=== PATIENT | female | born 1995 | race Hispanic/Latino ===

== ENCOUNTER 2022-11-20 16:54 | Day surgery (SDC) | payer OTHER ==
[2022-11-20] MEDS ORDERED: hydrALAZINE 20 MG/ML VIAL SLOW IVP PRN (18:21)
[2022-11-20] MEDS ORDERED: Acetaminophen 325 MG TAB PO SCH (19:00)
[2022-11-20 19:19] LABS: Fetal Membranes Rupture No Membranes Rupture (No Rupture)
[2022-11-20 20:43] LABS: Bilirubin Neg (Negative); Blood, Urine Negative (Negative); CAUTI Indications for Culture Pregnancy; Clarity Clear (Clear); Glucose, Urine (Dipstick) Normal (Negative); Ketone, Urine 5 mg/dL (Negative); Leukocyte Negative (Negative); Nitrite Negative (Negative); Protein, Urine (Dipstick) Negative (Neg-Trace); Urobilinogen Normal mg/dL (Less than 2); pH, Urine 6.5 (5.0-9.0)
[2022-11-20 20:49] LABS: Urine Culture Reflex Yes Yes
[2022-11-20 21:08] LABS: RBC/HPF 0-3 HPF (0-3); Squamous Epithelial 0-3 HPF (0-3); WBC/HPF 0-3 HPF (0-3)
[2022-11-20 21:10] LABS: Bacteria/HPF Rare-Few HPF (None Seen)
== END 2022-11-20 21:29 | disposition home or self-care (01) ==
LOC: CSHLD/OP 16:54
PROVIDERS: ATTEND Student in an Organized Health Care Education/Training Program
DX: O26.893 Other specified pregnancy related conditions, third trimester (principal); R10.9 Unspecified abdominal pain; N89.8 Other specified noninflammatory disorders of vagina; Z3A.34 34 weeks gestation of pregnancy; Z87.442 Personal history of urinary calculi; Z79.899 Other long term (current) drug therapy; Z88.0 Allergy status to penicillin; Z88.1 Allergy status to other antibiotic agents
CPT/HCPCS: 81001; 84112; 87086; 87480; 87510; 87660; 99284

== ENCOUNTER 2022-12-18 05:26 | Day surgery (SDC) | payer OTHER ==
[2022-12-18 05:48] VITALS: BMI 32.9
[2022-12-18] MEDS ORDERED: Ondansetron PF 4 MG/2 ML Vial ONE (07:36)
[2022-12-18] MEDS ORDERED: hydrALAZINE 20 MG/ML VIAL SLOW IVP PRN (08:07)
[2022-12-18 08:51] LABS: SARS-CoV-2 NAA Rapid Test Not Detected (NotDetected)
== END 2022-12-18 10:50 | disposition home or self-care (01) ==
LOC: CSHLD/OP 05:26
PROVIDERS: ATTEND Obstetrics & Gynecology
DX: O47.1 False labor at or after 37 completed weeks of gestation (principal); O98.513 Other viral diseases complicating pregnancy, third trimester; B34.9 Viral infection, unspecified; Z20.822 Contact with and (suspected) exposure to COVID-19; O99.213 Obesity complicating pregnancy, third trimester; E66.9 Obesity, unspecified; Z88.0 Allergy status to penicillin; Z88.1 Allergy status to other antibiotic agents; Z3A.38 38 weeks gestation of pregnancy
CPT/HCPCS: 96360; 96375; 99283; J2405

== ENCOUNTER 2022-12-21 00:19 | Inpatient (IN) | payer MEDICAID, OTHER, SELFPAY ==
[2022-12-21] MEDS ORDERED: hydrALAZINE 20 MG/ML VIAL SLOW IVP PRN ×2 (01:18→10:25)
[2022-12-21] MEDS ORDERED: Ondansetron PF 4 MG/2 ML Vial IVP PRN ×2 (01:18→02:19)
[2022-12-21] MEDS ORDERED: Acetaminophen 500 MG TAB PO PRN (01:18)
[2022-12-21] MEDS ORDERED: Butorphanol Tartrate 1 MG/ML VIAL SLOW IVP PRN (01:18)
[2022-12-21] MEDS ORDERED: Promethazine HCl 25 MG/ML VIAL IM PRN ×2 (01:18→02:19)
[2022-12-21] MEDS ORDERED: Fentanyl 100 MCG/2 ML VIAL SLOW IVP PRN (01:18)
[2022-12-21] MEDS ORDERED: Ibuprofen 800 MG TAB PO PRN (01:23)
[2022-12-21] MEDS ORDERED: Methylergonovine 0.2 MG/ML VIAL IM PRN (01:23)
[2022-12-21] MEDS ORDERED: Misoprostol 200 MCG TAB PR PRN (01:23)
[2022-12-21] MEDS ORDERED: Lidocaine 1% (PF) 30 ML VIAL SC PRN (01:23)
[2022-12-21] MEDS ORDERED: Carboprost 250 MCG/ML AMP IM PRN (01:23)
[2022-12-21] MEDS ORDERED: Diphenoxylate HCl/Atropine Tablet PO PRN (01:23)
[2022-12-21] MEDS ORDERED: NS w/ Oxytocin 30 units 500 ML IV SCH ×2 (01:30→10:25)
[2022-12-21] MEDS ORDERED: Lactated Ringer's 1,000 ML IV SCH ×2 (01:30)
[2022-12-21 01:54] LABS: Hemoglobin 13.6 g/dL (12.0-15.5); Mean Corpuscular HGB CONC 33.2 g/dL (32.0-36.0); Mean Corpuscular Hemoglobin 26.4 pg (27.0-33.0); Mean Corpuscular Volume 79.6 fl (81.6-98.3); Mean Platelet Volume 10.3 fl (7.4-10.4); Platelet Count 340 10x3/uL (150-450); RBC Distribution Width 15.1 % (11.5-14.5); Red Blood Cell (RBC) Count 5.15 10x6/uL (3.90-5.03); White Blood Cell (WBC) Count 10.8 10x3/uL (3.5-10.5)
[2022-12-21] MEDS ORDERED: Fentanyl 2 mcg/Bup 0.1% Cadd 100 ML ONE (02:08)
[2022-12-21] MEDS ORDERED: Moisturizing Cream (Eucerin) 113 GM JAR TOP PRN (02:19)
[2022-12-21] MEDS ORDERED: diphenhydrAMINE 50 MG/ML VIAL IVP PRN (02:19)
[2022-12-21] MEDS ORDERED: Naloxone HCl 0.4 mg/ml Vial IVP PRN ×2 (02:19)
[2022-12-21] MEDS ORDERED: Lactated Ringer's 500 ML IV PRN (02:19)
[2022-12-21] MEDS ORDERED: ePHEDrine Sulfate 50 MG/10 ML VIAL SLOW IVP PRN (02:19)
[2022-12-21] MEDS ORDERED: Acetaminophen 325 MG TAB PO PRN (02:19)
[2022-12-21 02:27] VITALS: BMI 33.1
[2022-12-21 02:28] LABS: HBSAg Index 0.17 S/CO (0-0.99); Hep B Surf Ag Non-Reactive S/CO (NonReactive)
[2022-12-21 02:30] LABS: Syphilis Antibody Nonreactive (Nonreactive); Syphilis Antibody Index 0.09 S/CO (<1.00 Non-Reactive)
[2022-12-21] MEDS ORDERED: Communication Order-Pharmacy FS SCH (02:30)
[2022-12-21] MEDS ORDERED: Fentanyl 2 mcg/Bupivacaine 0.1% Cassette 100 ML EPIDURAL SCH (02:30)
[2022-12-21] MEDS: NS w/ Oxytocin 30 units 500 ML IV SCH ×2 (07:19→09:13)
[2022-12-21] MEDS ORDERED: Preparation H Ointment 28 GM TUBE PR PRN (10:25)
[2022-12-21] MEDS ORDERED: Boostrix 0.5 ML (Tdap) VIAL (>/=7 yrs of age) IM ONE (10:25)
[2022-12-21] MEDS ORDERED: diphenhydrAMINE 25 MG CAP PO PRN (10:25)
[2022-12-21] MEDS ORDERED: Milk Of Magnesia 30 ML UDCUP PO PRN (10:25)
[2022-12-21] MEDS ORDERED: Lanolin Ointment 7 GM TUBE TOP PRN (10:25)
[2022-12-21] MEDS ORDERED: Bisacodyl 10 MG SUPP PR PRN (10:25)
[2022-12-21] MEDS ORDERED: Benzocaine-Menthol 82.5 ML CAN TOP PRN (10:25)
[2022-12-21] MEDS ORDERED: Ferrous Sulfate 325 MG TAB PO SCH (10:45)
[2022-12-21] MEDS ORDERED: Prenatal Vitamin 1 TAB PO SCH (10:45)
[2022-12-21] MEDS ORDERED: Docusate 100 MG CAP PO SCH (10:45)
[2022-12-21] MEDS: Acetaminophen 500 MG TAB PO SCH ×3 (12:08→22:06)
[2022-12-21] MEDS ORDERED: Bupivacaine HCl 0.5%/Epinephrine 1:200,000/PF 30 ml Vial ONE (14:28)
[2022-12-21] MEDS ORDERED: Bupivacaine/Epinephrine 0.25% 30 ML VIAL ONE (14:28)
[2022-12-21] MEDS: Ferrous Sulfate 325 MG TAB PO SCH (17:08)
[2022-12-21] MEDS: Docusate 100 MG CAP PO SCH (21:42)
[2022-12-21] MEDS: Ibuprofen 800 MG TAB PO SCH (21:56)
[2022-12-22 04:25] LABS: Hemoglobin 11.2 g/dL (12.0-15.5); Mean Corpuscular HGB CONC 32.4 g/dL (32.0-36.0); Mean Corpuscular Hemoglobin 26.1 pg (27.0-33.0); Mean Corpuscular Volume 80.7 fl (81.6-98.3); Mean Platelet Volume 9.8 fl (7.4-10.4); Platelet Count 288 10x3/uL (150-450); RBC Distribution Width 15.2 % (11.5-14.5); Red Blood Cell (RBC) Count 4.29 10x6/uL (3.90-5.03); White Blood Cell (WBC) Count 9.9 10x3/uL (3.5-10.5)
[2022-12-22] MEDS: Acetaminophen 500 MG TAB PO SCH ×2 (05:24→10:45)
[2022-12-22] MEDS: Ibuprofen 800 MG TAB PO SCH ×2 (05:24→14:15)
[2022-12-22 05:28] VITALS: BP 103/54; TEMP 98
[2022-12-22] MEDS ORDERED: Prenatal Vitamin 1 TAB PO SCH (09:00)
[2022-12-22] MEDS: Ferrous Sulfate 325 MG TAB PO SCH (10:37)
[2022-12-22] MEDS: Docusate 100 MG CAP PO SCH (10:37)
[2022-12-22] MEDS ORDERED: Ibuprofen 800 MG TAB PO SCH (14:00)
== END 2022-12-22 18:31 | disposition home or self-care (01) | DRG 807 ==
LOC: CSHLD/OP 00:19 → CSHNSY 00:47 → CSHLD 03:27 → CSHPED 10:20
PROVIDERS: ADMIT Obstetrics & Gynecology; ATTEND Obstetrics & Gynecology
PROC: 10E0XZZ Delivery of Products of Conception, External Approach (ICD-10-PCS; principal; 2022-12-21)
DX: O42.02 Full-term premature rupture of membranes, onset of labor within 24 hours of rupture (principal); Z37.0 Single live birth; Z3A.38 38 weeks gestation of pregnancy; Z98.890 Other specified postprocedural states; Z88.0 Allergy status to penicillin; Z88.1 Allergy status to other antibiotic agents; Z87.440 Personal history of urinary (tract) infections; Z87.442 Personal history of urinary calculi
CPT/HCPCS: 36415; 51702; 85027; 86780; 86850; 86900; 86901; 87340; 99285; J2590

== ENCOUNTER 2024-04-09 00:39 | Day surgery (SDC) | payer OTHER ==
[2024-04-09 01:42] VITALS: BMI 35.9
[2024-04-09] MEDS ORDERED: hydrALAZINE 20 MG/ML VIAL SLOW IVP PRN (01:51)
== END 2024-04-09 04:45 | disposition home or self-care (01) ==
LOC: CSHLD/OP 00:39
PROVIDERS: ATTEND Family Medicine
DX: O47.1 False labor at or after 37 completed weeks of gestation (principal); Z88.0 Allergy status to penicillin; Z88.1 Allergy status to other antibiotic agents; Z79.899 Other long term (current) drug therapy
CPT/HCPCS: 99282

== ENCOUNTER 2024-04-21 04:00 | Day surgery (SDC) | payer OTHER ==
[2024-04-21 04:29] VITALS: BMI 38.3
== END 2024-04-21 07:30 | disposition home or self-care (01) ==
LOC: CSHLD/OP 04:00
PROVIDERS: ATTEND Family Medicine
DX: O47.1 False labor at or after 37 completed weeks of gestation (principal); Z3A.39 39 weeks gestation of pregnancy; Z79.899 Other long term (current) drug therapy; Z88.0 Allergy status to penicillin; Z88.1 Allergy status to other antibiotic agents
CPT/HCPCS: 99283

== ENCOUNTER 2024-04-22 10:16 | Inpatient (IN) | payer MEDICAID, OTHER, SELFPAY ==
[2024-04-22 10:56] VITALS: BMI 36.3
[2024-04-22] MEDS ORDERED: HYDROcodone/Acetaminophen 5/325 mg Tablet PO PRN (10:56)
[2024-04-22] MEDS ORDERED: Promethazine HCl 25 MG/ML VIAL IM PRN ×2 (10:56→12:32)
[2024-04-22] MEDS ORDERED: fentaNYL 50 mcg/mL 1 mL Vial SLOW IVP PRN (10:56)
[2024-04-22] MEDS ORDERED: Lidocaine 1% (PF) 30 ML VIAL SC PRN (10:56)
[2024-04-22] MEDS ORDERED: hydrALAZINE 20 MG/ML VIAL SLOW IVP PRN (10:56)
[2024-04-22] MEDS ORDERED: Misoprostol 200 MCG TAB PR PRN (10:56)
[2024-04-22] MEDS ORDERED: Carboprost 250 MCG/ML AMP IM PRN (10:56)
[2024-04-22] MEDS ORDERED: Methylergonovine 0.2 MG/ML VIAL IM PRN (10:56)
[2024-04-22] MEDS ORDERED: Tranexamic Acid 1,000 MG/10 ML VIAL IVP PRN (10:56)
[2024-04-22] MEDS ORDERED: Diphenoxylate HCl/Atropine Tablet PO PRN (10:56)
[2024-04-22] MEDS ORDERED: Ondansetron PF 4 MG/2 ML Vial IVP PRN ×2 (10:56→12:32)
[2024-04-22] MEDS ORDERED: Lactated Ringer's 1,000 ML IV SCH (11:00)
[2024-04-22] MEDS ORDERED: Oxytocin 30 units/NS 500 ML 500 ML IV SCH ×2 (11:00)
[2024-04-22 11:25] LABS: Hemoglobin 11.1 g/dL (12.0-15.5); Mean Corpuscular HGB CONC 32.6 g/dL (32.0-36.0); Mean Corpuscular Hemoglobin 24.4 pg (27.0-33.0); Mean Corpuscular Volume 74.7 fl (81.6-98.3); Mean Platelet Volume 9.9 fl (7.4-10.4); Platelet Count 365 10x3/uL (150-450); RBC Distribution Width 15.6 % (11.5-14.5); Red Blood Cell (RBC) Count 4.55 10x6/uL (3.90-5.03); White Blood Cell (WBC) Count 9.9 10x3/uL (3.5-10.5)
[2024-04-22] MEDS: Penicillin G Potassium 5 MILL.UNITS VIAL ONE (11:56)
[2024-04-22 11:59] LABS: Syphilis Antibody Nonreactive (Nonreactive); Syphilis Antibody Index 0.08 S/CO (<1.00 Non-Reactive)
[2024-04-22 12:00] LABS: HBsAg Index 0.16 S/CO (0-0.99); Hep B Surf Ag - L&D Non-Reactive S/CO (NonReactive)
[2024-04-22] MEDS: Oxytocin 30 units/NS 500 ML 500 ML IV SCH (12:03)
[2024-04-22] MEDS ORDERED: Lactated Ringer's 500 ML IV PRN (12:32)
[2024-04-22] MEDS ORDERED: Naloxone HCl 0.4 mg/ml Vial IVP PRN ×2 (12:32)
[2024-04-22] MEDS ORDERED: Acetaminophen 325 MG TAB PO PRN (12:32)
[2024-04-22] MEDS ORDERED: ePHEDrine Sulfate 50 MG/10 ML VIAL SLOW IVP PRN (12:32)
[2024-04-22] MEDS ORDERED: diphenhydrAMINE 50 MG/ML VIAL IVP PRN (12:32)
[2024-04-22] MEDS ORDERED: Moisturizing Cream (Eucerin) 113 GM JAR TOP PRN (12:32)
[2024-04-22] MEDS ORDERED: Communication Order-Pharmacy FS SCH (12:45)
[2024-04-22] MEDS: fentaNYL/Ropivacaine Epidural 100 ML ONE (12:51)
[2024-04-22] MEDS: Acetaminophen 500 MG TAB PO PRN (18:08)
[2024-04-22] MEDS: CEFAZOLIN 2 GM VIAL ONE (18:30)
[2024-04-23] MEDS: fentaNYL 2 mcg/Ropivacaine 0.2% Epidural 100 ML CADD EPIDURAL SCH (00:12)
[2024-04-23] MEDS: CEFAZOLIN 2 GM in Sodium Chloride 0.9% 100 ML IVPB SCH ×2 (00:34→04:38)
[2024-04-23] MEDS: Ibuprofen 800 MG TAB PO PRN (02:28)
[2024-04-23] MEDS ORDERED: Benzocaine-Menthol 82.5 ML CAN TOP PRN (04:35)
[2024-04-23] MEDS ORDERED: Promethazine HCl 25 MG/ML VIAL IM PRN (04:35)
[2024-04-23] MEDS ORDERED: Milk Of Magnesia 30 ML UDCUP PO PRN (04:35)
[2024-04-23] MEDS ORDERED: hydrALAZINE 20 MG/ML VIAL SLOW IVP PRN (04:35)
[2024-04-23] MEDS ORDERED: Bisacodyl 10 MG SUPP PR PRN (04:35)
[2024-04-23] MEDS ORDERED: Ondansetron PF 4 MG/2 ML Vial IVP PRN (04:35)
[2024-04-23] MEDS ORDERED: diphenhydrAMINE 25 MG CAP PO PRN (04:35)
[2024-04-23] MEDS ORDERED: Lanolin Ointment 7 GM TUBE TOP PRN (04:35)
[2024-04-23] MEDS: PHENYLEPHRINE-NS 100 MCG/ML 10 ML SYRINGE ONE (04:38)
[2024-04-23] MEDS: Boostrix 0.5 ML (Tdap) VIAL (>/=7 yrs of age) IM ONE (04:57)
[2024-04-23] MEDS: HYDROcodone/Acetaminophen 5/325 mg Tablet PO PRN ×2 (05:18→17:45)
[2024-04-23] MEDS: Ferrous Sulfate 325 MG TAB PO SCH (07:47)
[2024-04-23] MEDS: Prenatal Vitamin 1 TAB PO SCH (09:26)
[2024-04-23] MEDS: Ibuprofen 800 MG TAB PO SCH (09:26)
[2024-04-23] MEDS: Docusate 100 MG CAP PO SCH (09:26)
[2024-04-23] MEDS ORDERED: Bupivacaine 0.25% HCL 30 ML VIAL ONE (16:09)
[2024-04-24] MEDS: HYDROcodone/Acetaminophen 5/325 mg Tablet PO PRN (06:29)
[2024-04-24] MEDS: Fioricet 325/50/40 mg Tablet PO PRN (09:24)
[2024-04-24 09:48] VITALS: BP 110/76; TEMP 98.1
== END 2024-04-24 14:30 | disposition home or self-care (01) | DRG 807 ==
LOC: CSHLD 10:16 → CSHPP 04-23 04:10
PROVIDERS: ADMIT Family Medicine; ATTEND Family Medicine
PROC: 10H07YZ Insertion of Other Device into Products of Conception, Via Natural or Artificial Opening (ICD-10-PCS; principal; 2024-04-23)
PROC: 10E0XZZ Delivery of Products of Conception, External Approach (ICD-10-PCS; 2024-04-23)
DX: O99.824 Streptococcus B carrier state complicating childbirth (principal); Z37.0 Single live birth; Z3A.39 39 weeks gestation of pregnancy; O09.43 Supervision of pregnancy with grand multiparity, third trimester; Z88.0 Allergy status to penicillin; Z88.1 Allergy status to other antibiotic agents
CPT/HCPCS: 85027; 86780; 86850; 86900; 86901; 87340; J0665; J2590; J3490